=== PATIENT | male | born 1950 | race Caucasian/White ===

== ENCOUNTER → 2017-11-12 | Outpatient (CLI) | payer OTHER ==
[~2017-11-12] MED LIST: ASPI-232 PO; BISA-16 PO; BUPRTAB PO; DONE5TAB9 PO; FISH1CAP7 PO; FLUT0.15 NAE; GLIM2TAB2 PO; HYZ/50125 PO; MISCCAP80; MORPHINE; MULT1CAP17 PO; PRVC/40 PO; SERT-234 PO; SYMIN160 INH; TAMS0.4C38 PO; TOPI25TA10 PO; VITAMIN D PO
--- NOTE | 2017-11-12 12:26 | DIAGNOSTIC IMAGING REPORT ---
L-SPINE MIN 4 VIEWS ROUTINE HISTORY: Pain LUMBAGO, POST SURGERY COMPARISON: 03/23/2015 FINDINGS: Evidence for an operative low lumbar laminectomy and fusion. An epidural catheter is identified with the superior margin at approximately the level of T9. Bowel pattern is nonobstructive. There are mild degenerative changes of the hips bilaterally. Severe degenerative intervertebral disc change at L2-L3 and L3-L4. Vertebral body stature shows no evidence for compromise. IMPRESSION: Considerable degenerative and postoperative changes of the mid to low lumbar spine.] An epidural infusion catheter is noted with the tip at the level of T9. The above report was generated using voice recognition software. It may contain grammatical, syntax or spelling errors. Electronically signed by: Cecilio Rand M.D. 11/12/2017 12:25 PM Dictated Date/Time: 11/12/2017 12:22 PM
== END | disposition home or self-care (01) ==
LOC: C.RADBC 11:35
PROVIDERS: ATTEND Physician Assistant
DX: M96.1 Postlaminectomy syndrome, not elsewhere classified (principal); M54.5 Low back pain